=== PATIENT | male | born 1990 | race Caucasian/White ===

== ENCOUNTER 2022-11-10 19:32 | Emergency (ER) | payer BC ==
[~2022-11-10] VITALS: Ht 167.6 cm; Wt 95.3 kg
[2022-11-10] MEDS ORDERED: KETOROLAC TROMETHAMINE 60 MG/2 ML VIAL IM ONE (19:45)
[2022-11-10 19:46] VITALS: BP_SYST 120
--- NOTE | 2022-11-10 19:48 | NUR ---
Patient to ER bed 8 to gown for evaluation. Side rails up. Report given to DIAN FITZPATRICK(REG).
--- NOTE | 2022-11-10 19:48 | NUR ---
ER at bedside examining patient.
--- NOTE | 2022-11-10 19:49 | NUR ---
Placed in room 8 . 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 To gown for exam. Side rails up.
--- NOTE | 2022-11-10 19:50 | NUR ---
Pt C/O back pain States pain started after waking up from nap [id number] VSS Family at bedside Will continue to monitor
[2022-11-10] MEDS ORDERED: MORPHINE 4 MG INJ. 4 MG/ML VIAL IM ONE (20:00)
[2022-11-10] MEDS ORDERED: MORPHINE 4 MG INJ. 4 MG/ML VIAL IVP ONE (21:15)
[2022-11-10] MEDS ORDERED: NACL 0.9% 1,000 ML IV ONE (21:15)
[2022-11-10] MEDS ORDERED: KETOROLAC TROMETHAMINE 30 MG VIAL IVP ONE (21:15)
[2022-11-10 21:33] LABS: BASOPHILS % (AUTO) 0.2 % (0.0-2.0); EOSINOPHILS # (AUTO) 0.1 K/uL (0.0-0.4); EOSINOPHILS % (AUTO) 1.3 % (0.0-4.0); HEMATOCRIT 44.9 % (36-54); HEMOGLOBIN 15.9 g/dL (14.0-18.0); LYMPHOCYTES # (AUTO) 1.3 K/uL (1.0-5.5); LYMPHOCYTES % (AUTO) 21.9 % (20.5-51.5); MEAN CORPUSCULAR HEMOGLOBIN 29 pg (27-31); MEAN CORPUSCULAR HGB CONC 35 % (32-36); MEAN CORPUSCULAR VOLUME 83 fL (79.0-98.0); MONOCYTES # (AUTO) 0.6 K/uL (0.0-1.0); NEUTROPHILS # (AUTO) 3.9 K/uL (1.8-7.7); NEUTROPHILS % (AUTO) 66.6 % (40.0-70.0); PLATELET COUNT (AUTO) 215 K/uL (130-430); RED BLOOD CELL COUNT(AUTO) 5.44 MIL/uL (4.2-6.2); RED CELL DISTRIBUTION WIDTH 13.4 % (9.0-15.0); WHITE BLOOD COUNT (AUTO) 5.8 K/uL (4.8-10.8)
[2022-11-10 21:34] LABS: BLOOD, URINE NEGATIVE (NEGATIVE); CLARITY/URINE CLEAR (CLEAR); GLUCOSE,URINE NEGATIVE (NEGATIVE); KETONES,URINE NEGATIVE (NEGATIVE); LEUKOCYTE ESTERASE ,URINE NEGATIVE (NEGATIVE); NITRITE, URINE NEGATIVE (NEGATIVE); PH,URINE 6.5 (5.0-8.0); PROTEIN URINE TRACE (NEGATIVE)
[2022-11-10 21:41] LABS: COLOR,URINE YELLOW (YELLOW)
[2022-11-10 21:42] LABS: BILIRUBIN,URINE NEGATIVE (NEGATIVE)
--- NOTE | 2022-11-10 21:44 | NUR ---
Urine sent to lab
[2022-11-10 21:48] LABS: CREATININE 1.15 mg/dL (0.55-1.30)
[2022-11-10 21:50] LABS: BACTERIA,URINE None Seen /HPF (None Seen); RBC,URINE NONE SEEN /HPF (0-3); WBC,URINE 0-3 /HPF (0-3)
[2022-11-10 21:51] LABS: MUCUS,URINE None Seen /LPF (None Seen)
[2022-11-10 21:52] LABS: ALBUMIN 4.2 g/dL (3.4-4.8); TOTAL BILIRUBIN 1.6 mg/dL (0.0-1.0)
[2022-11-11] MEDS ORDERED: CYCL10TA24 PO (00:29)
--- NOTE | 2022-11-11 00:40 | NUR ---
Patient given written and verbal discharge instructions and verbalizes understanding. ER MD discussed with patient the results and treatment provided. Patient in stable condition. ID arm band removed. IV catheter removed intact and dressing applied, no active bleeding. Rx given. Patient educated on pain management and to follow up with PMD. Opportunity for questions provided and answered. Medication side effect fact sheet provided.
== END 2022-11-11 00:38 | disposition home or self-care (01) ==
LOC: SED 19:32
DX: M54.50 Low back pain, unspecified (principal); M62.830 Muscle spasm of back; Z79.899 Other long term (current) drug therapy
CPT/HCPCS: 99285; 96374; 96361; 96375; 96372; 74176; 80053; 81000; 85025; 36415; 76376; J7030; J1885 ×2; J2270